=== PATIENT | female | born 1985 | race Caucasian/White ===

== ENCOUNTER 2024-07-23 12:35 | Observation (INO) | payer OTHER ==
[~2024-07-23 12:35] MED LIST: Iopamidol 300 61% 100 ML VIAL FS ONE
[2024-07-23] MEDS ORDERED: Morphine 4 MG/ML VIAL ONE (12:52)
[2024-07-23] MEDS ORDERED: Ondansetron PF 4 MG/2 ML Vial ONE (12:52)
[2024-07-23 13:11] LABS: #Basophils 0.05 10x3/uL (0.0-0.2); #Monocytes 0.63 10x3/uL (0.0-1.1); %Basophils 0.4 % (0.0-2.0); %Eosinophils 0.8 % (0.0-6.0); %Lymphocytes 28.2 % (18.0-47.0); %Monocytes 5.1 % (0.0-10.0); %Neutrophils 65.1 % (40.0-75.0); Hematocrit 44.2 % (34.9-44.5); Hemoglobin 15.9 g/dL (12.0-15.5); Mean Corpuscular Volume 94.6 fL (81.6-98.3); Mean Platelet Volume 8.4 fL (7.4-10.4); Platelet Count 407 10x3/uL (150-450); RBC Distribution Width 11.6 % (11.5-14.5); Red Blood Cell (RBC) Count 4.67 10x6/uL (3.90-5.03); White Blood Cell (WBC) Count 12.3 10x3/uL (3.5-10.5)
[2024-07-23] MEDS ORDERED: Piperacillin/Tazobactam 3.375 GM VIAL ONE (13:16)
[2024-07-23 13:28] LABS: BHCG - Serum Negative (NEGATIVE); Pregs Control Background? CLEAR/WHITE (CLR/WHITE); Pregs Control Bar Appear? YES (CONTROL BAR)
[2024-07-23 13:30] LABS: ALT (SGPT) 20 U/L (8-55); AST (SGOT) 19 U/L (5-34); Albumin 4.4 g/dL (3.5-5.0); Alkaline Phosphatase 75 U/L (40-110); Anion Gap 20 mmol/L (10-20); BUN (Urea Nitrogen) 8 mg/dL (7.0-18.7); Bilirubin, Total 0.5 mg/dL (0.2-1.2); Calc. Creatinine Clearance 0 mL/min (70-130); Carbon Dioxide 15 mmol/L (22-29); Chloride 107 mmol/L (98-107); Estimated GFR 88; Globulin 3.5 g/dL (2.4-3.5); Glucose 143 mg/dL (70-105); Lipase 49 U/L (8-78); Potassium 3.5 mmol/L (3.5-5.1); Protein, Total 7.9 g/dL (6.0-8.3); Sodium 138 mmol/L (136-145)
[2024-07-23 13:32] LABS: Troponin I Less than 0.010 ng/mL (< 0.028)
[2024-07-23] MEDS ORDERED: Morphine 4 MG/ML VIAL SLOW IVP PRN (15:06)
[2024-07-23] MEDS ORDERED: Acetaminophen 650 MG Suppository PR PRN (15:07)
[2024-07-23] MEDS ORDERED: Ondansetron ODT 4 MG TAB PO PRN (15:07)
[2024-07-23 15:12] LABS: Bilirubin Neg (Negative); Blood, Urine Negative (Negative); Clarity Clear (Clear); Glucose, Urine (Dipstick) Normal (Negative); Ketone, Urine Negative (Negative); Leukocyte 100 (Negative); Nitrite Negative (Negative); Protein, Urine (Dipstick) Negative (Neg-Trace); Specific Gravity, Urine 1.005 (1.005-1.030); Urobilinogen Normal mg/dL (Less than 2)
[2024-07-23 16:29] VITALS: BMI 25.7
[2024-07-23 16:54] LABS: Bacteria/HPF Rare-Few HPF (None Seen); CAUTI Indications for Culture Pelvic or flank pain; RBC/HPF None Seen HPF (0-3); Squamous Epithelial 0-3 HPF (0-3); Urine Culture Reflex No No; WBC/HPF 0-3 HPF (0-3)
[2024-07-23] MEDS: Acetaminophen 325 MG TAB PO PRN (17:07)
[2024-07-23] MEDS: Ondansetron PF 4 MG/2 ML Vial IVP PRN (19:45)
[2024-07-23] MEDS: Morphine 4 MG/ML VIAL SLOW IVP PRN (19:45)
[2024-07-23] MEDS: Piperacillin/Tazobactam 3.375 GM in Sodium Chloride 0.9% 100 ML IVPB SCH (19:45)
[2024-07-23] MEDS: Acyclovir 400 mg Tablet PO SCH (19:57)
[2024-07-24 03:33] LABS: #Basophils 0.04 10x3/uL (0.0-0.2); #Eosinophils 0.14 10x3/uL (0.0-0.5); #Monocytes 0.54 10x3/uL (0.0-1.1); #Neutrophils 4.09 10x3/uL (1.5-8.4); %Basophils 0.4 % (0.0-2.0); %Eosinophils 1.5 % (0.0-6.0); %Lymphocytes 48.2 % (18.0-47.0); %Monocytes 5.8 % (0.0-10.0); Hematocrit 36.9 % (34.9-44.5); Hemoglobin 13.1 g/dL (12.0-15.5); Mean Corpuscular HGB CONC 35.5 g/dL (32.0-36.0); Mean Corpuscular Hemoglobin 34.4 pg (27.0-33.0); Mean Corpuscular Volume 96.9 fL (81.6-98.3); Mean Platelet Volume 8.4 fL (7.4-10.4); Platelet Count 346 10x3/uL (150-450); RBC Distribution Width 11.7 % (11.5-14.5); Red Blood Cell (RBC) Count 3.81 10x6/uL (3.90-5.03); White Blood Cell (WBC) Count 9.3 10x3/uL (3.5-10.5)
[2024-07-24 03:58] LABS: Anion Gap 13 mmol/L (10-20); BUN (Urea Nitrogen) 6 mg/dL (7.0-18.7); Calc. Creatinine Clearance 112 mL/min (70-130); Calcium 8.4 mg/dL (7.8-10.44); Carbon Dioxide 19 mmol/L (22-29); Chloride 110 mmol/L (98-107); Estimated GFR 103; Glucose 85 mg/dL (70-105); Potassium 3.1 mmol/L (3.5-5.1); Sodium 139 mmol/L (136-145)
[2024-07-24] MEDS ORDERED: NS 0.9% w/ 40 MEQ KCL 1,000 ML IV SCH (08:15)
[2024-07-24 08:20] VITALS: TEMP 98.3
[2024-07-24] MEDS ORDERED: Escitalopram Oxalate 10 mg Tablet PO SCH (09:00)
[2024-07-24] MEDS: Potassium Chloride 20 MEQ TAB PO SCH (11:38)
[2024-07-24 11:49] VITALS: BP 118/85
== END 2024-07-24 12:01 | disposition home or self-care (01) ==
LOC: CSHERS 12:35 → CSHTELE 15:49
PROVIDERS: ADMIT Internal Medicine; ATTEND Internal Medicine
DX: A41.9 Sepsis, unspecified organism (principal); K52.9 Noninfective gastroenteritis and colitis, unspecified; K56.600 Partial intestinal obstruction, unspecified as to cause; B00.9 Herpesviral infection, unspecified; F41.9 Anxiety disorder, unspecified; F32.A Depression, unspecified; Z98.51 Tubal ligation status; Z88.0 Allergy status to penicillin; Z79.899 Other long term (current) drug therapy
CPT/HCPCS: 36415; 74177; 80048; 80053; 81001; 83605; 83690; 84484; 84703; 85025; 87040; 93005; 96375; 96376; G0378; J2272; J2405; J2543; Q9967

== ENCOUNTER 2025-03-20 05:33 | Emergency (ER) | payer OTHER ==
[2025-03-20] MEDS ORDERED: Ketorolac Tromethamine 30 MG (1 mL) VIAL ONE (05:52)
[2025-03-20] MEDS ORDERED: Ondansetron PF 4 MG/2 ML Vial ONE (05:52)
[2025-03-20 06:22] LABS: #Basophils Less than 0.03 10x3/uL (0.0-0.2); #Eosinophils Less than 0.03 10x3/uL (0.0-0.5); #Monocytes 0.90 10x3/uL (0.0-1.1); #Neutrophils 14.62 10x3/uL (1.5-8.4); %Basophils 0.1 % (0.0-2.0); %Eosinophils 0.0 % (0.0-6.0); %Lymphocytes 15.8 % (18.0-47.0); %Monocytes 4.9 % (0.0-10.0); %Neutrophils 78.8 % (40.0-75.0); Hematocrit 44.7 % (34.9-44.5); Hemoglobin 15.8 g/dL (12.0-15.5); Mean Corpuscular Hemoglobin 33.0 pg (27.0-33.0); Mean Corpuscular Volume 93.3 fL (81.6-98.3); Platelet Count 431 10x3/uL (150-450); Red Blood Cell (RBC) Count 4.79 10x6/uL (3.90-5.03); White Blood Cell (WBC) Count 18.55 10x3/uL (3.5-10.5)
[2025-03-20] MEDS ORDERED: HYDROmorphone 0.5 MG/0.5 ML SYRINGE ONE (06:34)
[2025-03-20 06:39] LABS: ALT (SGPT) 46 U/L (Less than 34); AST (SGOT) 46 U/L (11-34); Albumin 4.6 g/dL (3.1-4.5); Alkaline Phosphatase 70 U/L (40-110); Anion Gap 23 mmol/L (10-20); BUN (Urea Nitrogen) 7 mg/dL (7.0-18.7); Bilirubin, Total 0.8 mg/dL (0.3-1.2); Calc. Creatinine Clearance 0 mL/min (70-130); Calcium 10.3 mg/dL (7.8-10.44); Carbon Dioxide 17 mmol/L (22-29); Chloride 101 mmol/L (98-107); Globulin 4.6 g/dL (2.4-3.5); Glucose 105 mg/dL (70-105); Potassium 3.7 mmol/L (3.5-5.1); Sodium 137 mmol/L (136-145)
== END 2025-03-20 07:20 | disposition home or self-care (01) ==
LOC: CSHERS 05:33
DX: K59.00 Constipation, unspecified (principal); R10.9 Unspecified abdominal pain; F17.290 Nicotine dependence, other tobacco product, uncomplicated
CPT/HCPCS: 74177; 80053; 83605; 85025; 96374; 96375; J1171; J1885; J2270; J2405